=== PATIENT | female | born 1990 | race Caucasian/White ===

== ENCOUNTER 2020-09-12 22:54 | Emergency (ER) | payer OTHER ==
[~2020-09-12] VITALS: Ht 165.1 cm; Wt 61.2 kg
[2020-09-13] MEDS ORDERED: CEPHALEXIN500 MG PO (00:34)
== END 2020-09-13 00:52 | disposition home or self-care (01) ==
LOC: ED 22:54
DX: N39.0 Urinary tract infection, site not specified (principal); I10 Essential (primary) hypertension; F17.200 Nicotine dependence, unspecified, uncomplicated
CPT/HCPCS: 81001; 99283

== ENCOUNTER 2021-07-28 11:25 | Emergency (ER) | payer OTHER ==
[~2021-07-28] VITALS: Ht 165.1 cm; Wt 61.2 kg
[~2021-07-28 11:25] MED LIST: CEPHALEXIN500 MG PO
[2021-07-28] MEDS ORDERED: FLONASE ALLERG9.9 ML NAS (11:49)
== END 2021-07-28 12:41 | disposition home or self-care (01) ==
LOC: ED 11:25
DX: J06.9 Acute upper respiratory infection, unspecified (principal); R51.9 Headache, unspecified; I10 Essential (primary) hypertension; J45.909 Unspecified asthma, uncomplicated; F17.200 Nicotine dependence, unspecified, uncomplicated; Z79.899 Other long term (current) drug therapy
CPT/HCPCS: 99283